=== PATIENT | male | born 1975 | race Caucasian/White ===

== ENCOUNTER 2019-12-05 13:28 | Emergency (ER) | payer MEDICAID, OTHER, SELFPAY ==
[2019-12-05 13:58] VITALS: BP 120/79; PULSE 89; RESP 16; TEMP 36.7; O2SAT 100; BMI 29.9
--- NOTE | 2019-12-05 14:05 | ED.MALEGU ---
HPI - Male Genitourinary General Chief complaint: Urogenital-Male Stated complaint: uti Time Seen by Provider: 12/05/19 14:05 History of Present Illness HPI Narrative: patient complains of burning with urination for many months coming and going he has been to the urologist he has been to his primary care doctor and today he comes for burning with urination and frequency similar to prior episodes with no abdominal pain no back pain, he does say he has had a watery discharge on occasion, he denies any sexual activity for many many months, he denies any source or lesions Related Data Previous Rx's Medication Instructions Recorded phenazopyridine [Pyridium] 200 mg PO TID PRN 4 Days #10 tab 12/05/19 Allergies Allergy/AdvReac Type Severity Reaction Status Date / Time aspirin Allergy Swelling Verified 12/05/19 14:02 citric acid Allergy Swelling Verified 12/05/19 14:02 [From [facility]] ibuprofen [From Motrin] Allergy Swelling Verified 12/05/19 14:02 sodium bicarbonate Allergy Swelling Verified 12/05/19 14:02 [From [facility]] Review of Systems Review of Systems: review of systems is positive for dysuria, frequency and a clear pen I will discharge There is no fever no chills no nausea no vomiting no abdominal pain no lesions or sores, patient denies sexual contact for many months, no back pain no cough PMFSH Past Medical History Medical History (Updated 12/05/19 @ 14:54 by Carolyn Hedrick RN) No known health problems No known health problems Urinary tract infection Social History Social History Alcohol intake: unknown Smoking Status: Unknown if ever smoked Use of substances other than those prescribed or required for medical reasons: Unknown Advance Directives: No Advance Directives Information Provided: No Physical Exam Vital Signs and I&O and Narrative: Vital Signs and I&O: Vital Signs Temp 98.0 F 12/05/19 13:58 Pulse 89 12/05/19 13:58 Resp 16 12/05/19 13:58 BP 120/79 12/05/19 13:58 Pulse Ox 100 12/05/19 13:58 Intake & Output 12/04/19 12/05/19 12/05/19 18:59 06:59 18:59 Weight 84.368 kg Body Mass Index 29.9 general appearance is no acute distress, comfortable relaxed and cooperative ENT mucous membranes appear well hydrated The neck is supple Respiratory there is no respiratory distress Abdomen is soft nontender The back there is no CVA tenderness there is full range of motion no other tenderness genital exam is normal, no discharge no lesions no swelling Extremities no edema full range of motion Neuro A&O x3 Course Reevaluation(s) Reevaluation #1: patient's urinalysis was normal, point of care was 143 It was explained to the patient that I am not sure of his diagnosis he needs to follow with the urologist to he has already seen and primary care doctor, no evidence of any acute infection or emergent condition now and he is discharged with a prescription for Pyridium for symptom relief MDM - Male Genitourinary Lab Data Labs: Lab Results 12/05/19 12/05/19 Range/Units 14:03 14:20 POC Glucose 114 (60-115) mg/dL Urine Color YELLOW Urine Appearance CLEAR Urine pH 8.0 (5.0-8.0) Ur Specific [place] 1.020 (1.005-1.025) Urine Protein NEG (NEG-TRACE) MG/DL Urine Glucose (UA) NEG (NEG) MG/DL Urine Ketones NEG (NEG) MG/DL Urine Blood NEG (NEG) Urine Nitrite NEG (NEG) Ur Leukocyte Esterase NEG (NEG) Discharge Plan Discharge Clinical Impression: Dysuria Patient Disposition: Home, Self-Care Additional Instructions: we are trying Pyridium which is a medication for urinary discomfort Follow with primary doctor and urologist for further evaluation We are not sure of the cause of her frequent burning sensation but right now there does not seem to be any dangerous or emergent condition Return any time any worse condition or concerns Prescriptions: New phenazopyridine [Pyridium] 200 mg tablet 200 mg PO TID PRN (Reason: pain) 4 Days Qty: 10 RF: 0 Referrals: Aiden Raines III, MD [Physician] - 2 days ( patient complains of discomfort with urination for many months, seen here with a normal UA and a normal physical exam, GC chlamydia testing pending and was given a prescription for Pyridium and recommended to follow with urologist and primary doctor) Interventions: ED Discharge Assessment Last Done: 12/05/19 15:28 Discharge Date/Time: 12/05/19 15:30
[2019-12-05 14:13] LABS: Glucose Urine UA NEG (NEG); Leukocyte Esterase Urine NEG (NEG); Nitrite Urine NEG (NEG); Urine Blood NEG (NEG); Urine Ketones NEG (NEG); Urine Protein NEG (NEG-TRACE)
[2019-12-05 14:14] LABS: Appearance Urine CLEAR; Color Urine YELLOW
[2019-12-05 14:24] LABS: Glucose, Whole Blood 114 mg/dL (60-115)
== END 2019-12-05 15:30 | disposition home or self-care (01) ==
PROVIDERS: Physician Assistant Medical; Emergency Provider Emergency Medicine
DX: R30.0 Dysuria (principal)
CPT/HCPCS: 36415; 81003; 82947; 87491; 87591; 99283; 99284

== ENCOUNTER 2020-04-06 16:43 | Outpatient (REF) | payer MEDICAID, OTHER, SELFPAY | END 2020-04-06 16:44 | disposition home or self-care (01) | LOC: HO.LAB 16:43 | PROVIDERS: Visit Provider Internal Medicine | DX: Z20.822 Contact with and (suspected) exposure to COVID-19 (principal) | CPT/HCPCS: 36415; C9803; U0003; U0005 ==

== ENCOUNTER 2020-07-13 17:48 | Emergency (ER) | payer MEDICAID, OTHER, SELFPAY ==
[2020-07-13 18:27] VITALS: BP 115/76; PULSE 74; RESP 16; TEMP 36.4; O2SAT 99; BMI 29.8
[2020-07-13 19:41] LABS: Glucose Urine UA NEG (NEG); Leukocyte Esterase Urine NEG (NEG); Nitrite Urine NEG (NEG); Urine Blood NEG (NEG); Urine Ketones NEG (NEG); Urine Protein NEG (NEG-TRACE)
[2020-07-13 19:43] LABS: Appearance Urine CLEAR; Color Urine YELLOW
[2020-07-13 19:50] LABS: MANUAL DIFF FLAG NO
[2020-07-13 20:03] LABS: Basophils Percent Auto 0.3 % (0-2); Eosinophils Absolute Auto 0.2 X10*3/uL (0.0-0.4); Eosinophils Percent Auto 2.4 % (0-4); Hematocrit 42.6 % (42-52); Hemoglobin 14.2 g/dl (14.0-18.0); Imm Gran Abs Auto 0.01 X10*3/uL (0.00-0.03); Imm Gran Pct Auto 0.1 % (0.0-0.4); Lymphocytes Percent Auto 41.7 % (20-40); Mean Corpuscular HGB Conc 33.3 g/dl (31.0-36.0); Mean Corpuscular Volume 90.1 fL (80-98); Mean Platelet Volume 10.4 fL (9.4-12.4); Monocytes Absolute Auto 0.6 X10*3/uL (0.1-1.2); Monocytes Percent Auto 7.8 % (2-11); Neutrophils Absolute Auto 3.4 X10*3/uL (2.0-8.3); Neutrophils Percent Auto 47.7 % (45-73); Platelet Count 248 X10*3/uL (160-400); Red Blood Count 4.73 X10*6/uL (4.60-5.80); Red Cell Distribution Width 12.7 % (11.0-16.0); White Blood Count 7.1 X10*3/uL (4.8-10.8)
[2020-07-13 20:14] LABS: Alanine Aminotransferase 25 U/L (0-40); Albumin Level 4.1 g/dL (3.5-5.0); Alkaline Phosphatase 63 U/L (39-117); Anion Gap 11 (12-20); Aspartate Amino Transferase 19 U/L (5-37); Bilirubin Total 0.2 mg/dL (0.0-1.0); Blood Urea Nitrogen 19 mg/dL (9-16); Calcium 9.3 mg/dL (8.4-10.2); Carbon Dioxide 27 mmol/L (22-29); Chloride 104 mmol/L (96-108); Creatinine Clr Calc Pharmacy 108.6; Estimated Glomerular Filt Rate > 60; Glucose Random 101 mg/dL (60-115); Sodium 138 mmol/L (135-145); Total Protein 7.2 g/dL (6.5-8.0)
[2020-07-13 20:57] VITALS: BP 111/76; PULSE 69; RESP 16; TEMP 36.5; O2SAT 99
--- NOTE | 2020-07-13 22:00 | ED.MALEGU ---
HPI - Male Genitourinary General Chief complaint: Urogenital-Male Stated complaint: PAINFUL URINATION Time Seen by Provider: 07/13/20 21:42 Source: patient Mode of arrival: ambulatory Limitations: no limitations and language barrier History of Present Illness HPI Narrative: 44 y/o male presenting with 2 years of burning with urination, urgency and frequency. He states he has been seen for this many times before and told to follow up with Urology. He has been unable to see them due to insurance issues, but now has [employer]. He was frustrated with his doctor as they are only seeing him via [facility]. He denies blood in his urine or flank pain. He has chronic low back pain that is unchanged for many years. He denies fever, chills, N/V, abdominal pain, hematuira. Not sexually active denies change of STI. MD Complaint: dysuria Onset (ago): year(s) (2) Duration: intermittent Severity: moderate Quality: burning (and then cold sensation when urinating) Relieving factors: none Exacerbating factors: none Associated symptoms: Reports denies other symptoms Related Data Sexually active: No Previous Rx's Medication Instructions Recorded phenazopyridine [Pyridium] 200 mg PO TID PRN 4 Days #10 tab 12/05/19 phenazopyridine [Pyridium] 200 mg PO TID PRN #6 tab 07/13/20 Allergies Allergy/AdvReac Type Severity Reaction Status Date / Time aspirin Allergy Swelling Verified 07/13/20 18:27 citric acid Allergy Swelling Verified 07/13/20 18:27 [From [facility]] ibuprofen [From Motrin] Allergy Swelling Verified 07/13/20 18:27 sodium bicarbonate Allergy Swelling Verified 07/13/20 18:27 [From [facility]] Review of Systems Review of Systems: Constitutional: No Fever, No Chills Cardiovascular: No Chest Pain, No SOB Respiratory: No Cough, No Sputum Gastrointestinal: No Nausea, No Vomiting, No Diarrhea, No abdominal Pain, No Hematochezia, No Melena Genitourinary: + Dysuria, + Urinary Frequency, No Hematuria Musculoskeletal: No joint pain, + Myalgias Skin: No Skin Lesions, No rash Heme/Lymph: No Bruising, No Lymphadenopathy Endocrine: +Polyuria, No Polydipsia PMFSH Past Medical History Medical History Urinary tract infection Social History Social History Alcohol intake: unknown Smoking Status: Unknown if ever smoked Advance Directives: No Advance Directives Information Provided: Yes Physical Exam Vital Signs: Vital Signs: Last Vital Signs Temp 97.7 F 07/13/20 20:57 Pulse 69 07/13/20 20:57 Resp 16 07/13/20 20:57 BP 111/76 07/13/20 20:57 Pulse Ox 99 07/13/20 20:57 Body Mass Index 29.8 Appearance: Alert. Oriented X3. No acute distress. Eyes: Pupils equal, round and reactive to light. ENT: normal external inspection. Neck: Normal inspection. CVS: Normal heart rate and rhythm. Pulses normal. Respiratory: No respiratory distress. Breath sounds normal. Abdomen: Soft and non-tender. +BS x4. No CVA tenderness. Genitalia: Normal external genitalia exam, uncircumsized penis, easily retractable, no penile discharge. testicles descended without tenderness or skin changes, no masses. Skin: Skin warm and dry. Normal skin color. Normal skin turgor. No rashes. Extremities: No lower extremity edema. Neuro: Oriented X 3. Non-focal. Course Course Course Narrative: 44 y/o male presenting with dysuria, frequency and urgency for the last 2 years. Etiology is unknown. Blood work and UA are normal. CT/NG pending but patient is not sexually active and suspicion is low. No abdominal pain or flank pain. He appears comfortable and not in any pain. Will give trial of pyridium and have him f/u with Urology. He is stable for d/c. MDM - Male Genitourinary Lab Data Result diagrams: 07/13/20 19:46 07/13/20 19:46 Labs: Lab Results 07/13/20 07/13/20 07/13/20 Range/Units 19:09 19:46 19:46 WBC 7.1 (4.8-10.8) X10*3/uL RBC 4.73 (4.60-5.80) X10*6/uL Hgb 14.2 (14.0-18.0) g/dl Hct 42.6 (42-52) % MCV 90.1 (80-98) fL MCH 30.0 (27.0-33.0) pg MCHC 33.3 (31.0-36.0) g/dl RDW 12.7 (11.0-16.0) % Plt Count 248 (160-400) X10*3/uL MPV 10.4 (9.4-12.4) fL Immature Gran % (Auto) 0.1 (0.0-0.4) % Neut % (Auto) 47.7 (45-73) % Lymph % (Auto) 41.7 H (20-40) % [place] % (Auto) 7.8 (2-11) % Eos % (Auto) 2.4 (0-4) % Baso % (Auto) 0.3 (0-2) % Lymph # (Auto) 3.0 (1.2-4.9) X10*3/uL [place] # (Auto) 0.6 (0.1-1.2) X10*3/uL Eos # (Auto) 0.2 (0.0-0.4) X10*3/uL Baso # (Auto) 0.0 (0.0-0.2) X10*3/uL Abs Immat Gran (auto) 0.01 (0.00-0.03) X10*3/uL Absolute Neuts (auto) 3.4 (2.0-8.3) X10*3/uL Absolute Nucleated RBC 0.000 (0.0-0.012) X10*3/uL Nucleated RBC % (auto) 0.0 (0.0-0.2) /100WBC Hold Blue Top SEE NOTE Sodium (135-145) mmol/L Potassium (3.3-5.1) mmol/L Chloride (96-108) mmol/L Carbon Dioxide (22-29) mmol/L Anion Gap (12-20) BUN (9-16) mg/dL Creatinine (0.5-1.4) mg/dL Estim Creat Clear Calc Estimated GFR Random Glucose (60-115) mg/dL Calcium (8.4-10.2) mg/dL Total Bilirubin (0.0-1.0) mg/dL AST (5-37) U/L ALT (0-40) U/L Alkaline Phosphatase (39-117) U/L Total Protein (6.5-8.0) g/dL Albumin (3.5-5.0) g/dL Urine Color YELLOW Urine Appearance CLEAR Urine pH 6.0 (5.0-8.0) Ur Specific [place] 1.020 (1.005-1.025) Urine Protein NEG (NEG-TRACE) MG/DL Urine Glucose (UA) NEG (NEG) MG/DL Urine Ketones NEG (NEG) MG/DL Urine Blood NEG (NEG) Urine Nitrite NEG (NEG) Ur Leukocyte Esterase NEG (NEG) 07/13/20 Range/Units 19:46 WBC (4.8-10.8) X10*3/uL RBC (4.60-5.80) X10*6/uL Hgb (14.0-18.0) g/dl Hct (42-52) % MCV (80-98) fL MCH (27.0-33.0) pg MCHC (31.0-36.0) g/dl RDW (11.0-16.0) % Plt Count (160-400) X10*3/uL MPV (9.4-12.4) fL Immature Gran % (Auto) (0.0-0.4) % Neut % (Auto) (45-73) % Lymph % (Auto) (20-40) % [place] % (Auto) (2-11) % Eos % (Auto) (0-4) % Baso % (Auto) (0-2) % Lymph # (Auto) (1.2-4.9) X10*3/uL [place] # (Auto) (0.1-1.2) X10*3/uL Eos # (Auto) (0.0-0.4) X10*3/uL Baso # (Auto) (0.0-0.2) X10*3/uL Abs Immat Gran (auto) (0.00-0.03) X10*3/uL Absolute Neuts (auto) (2.0-8.3) X10*3/uL Absolute Nucleated RBC (0.0-0.012) X10*3/uL Nucleated RBC % (auto) (0.0-0.2) /100WBC Hold Blue Top Sodium 138 (135-145) mmol/L Potassium 4.0 (3.3-5.1) mmol/L Chloride 104 (96-108) mmol/L Carbon Dioxide 27 (22-29) mmol/L Anion Gap 11 L (12-20) BUN 19 H (9-16) mg/dL Creatinine 0.90 (0.5-1.4) mg/dL Estim Creat Clear Calc 108.6 Estimated GFR > 60 Random Glucose 101 (60-115) mg/dL Calcium 9.3 (8.4-10.2) mg/dL Total Bilirubin 0.2 (0.0-1.0) mg/dL AST 19 (5-37) U/L ALT 25 (0-40) U/L Alkaline Phosphatase 63 (39-117) U/L Total Protein 7.2 (6.5-8.0) g/dL Albumin 4.1 (3.5-5.0) g/dL Urine Color Urine Appearance Urine pH (5.0-8.0) Ur Specific [place] (1.005-1.025) Urine Protein (NEG-TRACE) MG/DL Urine Glucose (UA) (NEG) MG/DL Urine Ketones (NEG) MG/DL Urine Blood (NEG) Urine Nitrite (NEG) Ur Leukocyte Esterase (NEG) Discharge Plan Discharge Clinical Impression: Dysuria Patient Disposition: Home, Self-Care Instructions: Dysuria (ED) Additional Instructions: Your lab workup today was normal. Your urine test is normal. Your exam was normal. Recommend starting Pyridium as needed for urinary discomfort. You need to follow up with the Urology specialist. If you develop fever, chills, severe abdominal pain, blood in your urine or any other concerning symptom. Prescriptions: New phenazopyridine [Pyridium] 200 mg tablet 200 mg PO TID PRN (Reason: pain) Qty: 6 RF: 0 No Action phenazopyridine [Pyridium] 200 mg tablet 200 mg PO TID PRN (Reason: pain) 4 Days Qty: 10 RF: 0 Referrals: Fan Martinez MD [Physician] - 2 days (persistent dysuria and frequency with negative workup)
[2020-07-14 02:45] LABS: CT PCR NOT DETECTED (Not Detect.); NG PCR NOT DETECTED (Not Detect.)
== END 2020-07-13 22:22 | disposition home or self-care (01) ==
PROVIDERS: Emergency Provider Emergency Medicine; PCP Internal Medicine Geriatric Medicine
DX: R30.0 Dysuria (principal); Z79.899 Other long term (current) drug therapy
CPT/HCPCS: 36415; 80053; 81003; 85025; 87491; 87591; 99284

== ENCOUNTER 2020-12-21 14:17 | Outpatient (REF) | payer MEDICAID, OTHER, SELFPAY ==
--- NOTE | ~2020-12-21 | XR_ITS ---
EXAMINATION: XR ABDOMEN COMPLETE CLINICAL INDICATION: Dysuria COMPARISON: None TECHNIQUE: 2 views of the abdomen. FINDINGS: The bowel gas pattern is normal with no evidence of ileus or obstruction. No unusual soft tissue calcifications are noted. The bones are unremarkable. XR/XR abdomen min 2V IMPRESSION: No calcified stone identified over the abdomen. Nonspecific bowel gas pattern.
== END 2020-12-21 14:18 | disposition home or self-care (01) ==
LOC: HO.XRAY 14:17
PROVIDERS: PCP Internal Medicine Geriatric Medicine; Visit Provider Internal Medicine Geriatric Medicine
DX: R30.0 Dysuria (principal)
CPT/HCPCS: 74019

== ENCOUNTER 2022-03-13 16:52 | Emergency (ER) | payer MEDICAID, OTHER, SELFPAY ==
--- NOTE | ~2022-03-13 | CT_ITS ---
EXAMINATION: CT HEAD WITHOUT CONTRAST CLINICAL INFORMATION: Unsteady gait with headache COMPARISON: None TECHNIQUE: Imaging was performed from the skull base to vertex without intravenous administration of contrast. This CT examination was performed using dose optimization techniques as appropriate, variously including the following: *Automated exposure control *Adjustment of mA and/or kV according to patient size (this includes techniques or standardized protocols for targeted exams where dose is matched to indication/reason for exam; i.e. extremities or head) *Use of iterative reconstruction technique Total exam dose length product: 700 mGy-cm FINDINGS: No intra or extra-axial fluid collection, hemorrhage, or mass. No ventriculomegaly. No midline shift or herniation. Basal cisterns are patent. Dutta-white matter differentiation is maintained. No territorial encephalomalacia. No significant volume loss. There is no abnormal attenuation within the brain parenchyma. No calvarial fracture or soft tissue abnormality. Minimal cerebellar tonsillar ectopia. Mucosal thickening in ethmoid air cells and right maxillary antrum. Scattered small mucous retention cysts within the sphenoid sinuses and frontal sinuses. Mastoid air cells normally aerated. CT/CT head/brain wo IV con IMPRESSION: No acute intracranial pathology.
[2022-03-13 17:11] VITALS: BP 139/92; PULSE 83; RESP 18; TEMP 36.8; O2SAT 98; BMI 29.8
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
[2022-03-13 17:27] LABS: MANUAL DIFF FLAG NO
[2022-03-13 17:28] LABS: Basophils Percent Auto 0.3 % (0-2); Eosinophils Absolute Auto 0.2 X10*3/uL (0.0-0.4); Eosinophils Percent Auto 2.5 % (0-4); Hematocrit 44.1 % (42.0-52.0); Hemoglobin 14.6 g/dl (14.0-18.0); Imm Gran Abs Auto 0.03 X10*3/uL (0.00-0.03); Imm Gran Pct Auto 0.3 % (0.0-0.4); Lymphocytes Absolute Auto 3.8 X10*3/uL (1.2-4.9); Lymphocytes Percent Auto 42.2 % (20-40); Mean Corpuscular HGB Conc 33.1 g/dl (31.0-36.0); Mean Corpuscular Volume 87.7 fL (80.0-98.0); Mean Platelet Volume 9.3 fL (9.4-12.4); Monocytes Absolute Auto 0.7 X10*3/uL (0.1-1.2); Monocytes Percent Auto 7.6 % (2-11); Neutrophils Absolute Auto 4.2 x10*3/uL (2.0-8.3); Neutrophils Percent Auto 47.1 % (45-73); Platelet Count 269 X10*3/uL (160-400); Red Blood Count 5.03 X10*6/uL (4.60-5.80); Red Cell Distribution Width 13.2 % (11.0-16.0); White Blood Count 8.9 X10*3/uL (4.8-10.8)
[2022-03-13 17:49] LABS: Alanine Aminotransferase 52 U/L (0-40); Albumin Level 4.1 g/dL (3.5-5.0); Alkaline Phosphatase 84 U/L (39-117); Anion Gap 12 (12-20); Aspartate Amino Transferase 31 U/L (5-37); Bilirubin Direct < 0.2 mg/dL (0.0-0.5); Bilirubin Total 0.2 mg/dL (0.0-1.0); Blood Urea Nitrogen 25 mg/dL (9-16); Calcium 9.4 mg/dL (8.4-10.2); Carbon Dioxide 26 mmol/L (22-29); Chloride 106 mmol/L (96-108); Creatinine Clr Calc Pharmacy 95.7; Estimated Glomerular Filt Rate > 60; Ethanol < 10 mg/dL; Glucose Random 100 mg/dL (60-115); Magnesium 1.9 mg/dL (1.6-2.6); Potassium 4.1 mmol/L (3.3-5.1); Sodium 140 mmol/L (135-145); Total Protein 7.5 g/dL (6.5-8.0)
[2022-03-13 19:27] VITALS: BP 116/73; PULSE 74; RESP 18; TEMP 36.7; O2SAT 98
[2022-03-13 19:31] LABS: Amphetamine Screen Urine Not Detected (Not Detect); Barbiturates, Urine Not Detected (Not Detect); Benzodiazepines Screen Urine Not Detected (Not Detect); Cannabinoid Screen Urine Not Detected (Not Detect); Cocaine Screen Urine Not Detected (Not Detect); Fentanyl, urine Not Detected (Not Detect); Opiate Screen Urine Not Detected (Not Detect); Phencyclidine Screen Urine Not Detected (Not Detect)
[2022-03-13 20:00] LABS: Influenza A PCR NEGATIVE (Negative); Influenza B PCR NEGATIVE (Negative); Resp Syncy Virus RNA Qual PCR NEGATIVE (Negative); SARS COV2 PCR INHOUSE NEGATIVE (Negative)
[2022-03-13 22:01] LABS: Appearance Urine Clear; Color Urine Yellow; Glucose Urine UA Negative (Negative); Leukocyte Esterase Urine Negative (Negative); Nitrite Urine Negative (Negative); Specific Gravity - Urine 1.025 (1.005-1.025); Urine Blood Negative (Negative); Urine Ketones Negative (Negative); Urine Protein Negative (Neg-Trace)
[2022-03-13 22:45] VITALS: BP 114/72; PULSE 68; RESP 20; TEMP 36.4; O2SAT 98
[2022-03-13 22:56] VITALS: BP 114/72; PULSE 58; RESP 16; TEMP 36.4; O2SAT 98
[2022-03-13 23:03] LABS: Appearance Urine Clear; Color Urine Yellow; Glucose Urine UA Negative (Negative); Leukocyte Esterase Urine Negative (Negative); Nitrite Urine Negative (Negative); Specific Gravity - Urine 1.025 (1.005-1.025); UMIC TRIGGER UACC YES; Urine Blood Trace (Negative); Urine Ketones Negative (Negative); Urine Protein Negative (Neg-Trace)
[2022-03-13 23:08] LABS: Bacteria Urine None Seen (None Seen); Hyaline Casts Urine 0-2 /LPF (0-2); Squamous Epithelial Cell Urine 0-2 /HPF (0-2); WBC Urine 0-5 /HPF (0-5)
== END 2022-03-13 23:18 | disposition home or self-care (01) ==
PROVIDERS: Nurse Practitioner Family; Physician Assistant; Emergency Provider Internal Medicine; PCP Internal Medicine Geriatric Medicine
DX: R51.9 Headache, unspecified (principal); Z20.822 Contact with and (suspected) exposure to COVID-19; Z20.828 Contact with and (suspected) exposure to other viral communicable diseases; Z87.820 Personal history of traumatic brain injury; Z87.440 Personal history of urinary (tract) infections; Z79.899 Other long term (current) drug therapy
CPT/HCPCS: 0241U; 36415; 70450; 80048; 80076; 80307; 81001; 81003; 82077; 83735; 85025; 99284

== ENCOUNTER 2022-11-09 15:41 | Outpatient (REF) | payer MEDICAID, OTHER, SELFPAY ==
[2022-11-09 17:57] LABS: Appearance Urine Clear; Color Urine Yellow; Glucose Urine UA Negative (Negative); Leukocyte Esterase Urine Negative (Negative); Nitrite Urine Negative (Negative); Specific Gravity - Urine 1.025 (1.005-1.025); Urine Blood Negative (Negative); Urine Ketones Trace mg/dL (Negative); Urine Protein Negative (Neg-Trace)
== END 2022-11-09 15:42 | disposition home or self-care (01) ==
LOC: HO.LAB 15:41
PROVIDERS: Visit Provider Urology
DX: N39.0 Urinary tract infection, site not specified (principal); N41.1 Chronic prostatitis
CPT/HCPCS: 81003; 87086